=== PATIENT | female | born 1955 | race African-American/Black ===

== ENCOUNTER 2019-10-11 18:18 | Emergency (ER) | payer MEDICAID, OTHER ==
[~2019-10-11] VITALS: Ht 167.6 cm; Wt 63.0 kg
--- NOTE | 2019-10-11 19:47 | RAD ---
Two-view left clavicle HISTORY: Pain and bruising and swelling AP views left clavicle Visualized osseous structures appear normal. The glenohumeral relationship is normal. IMPRESSION: No acute findings. End impression Ribs left with PA chest History: Pain PA view of the chest and dedicated views of the left ribs were obtained. The heart and pulmonary vessels appear normal. The lungs and pleural margins are clear. The visualized osseous structures appear intact. Impression: No acute findings. No evidence of a bony displaced rib fracture. End impression Two-view left humerus: AP lateral views The visualized osseous structures appear normal. IMPRESSION: No acute findings. End impression Three views left shoulder History: pain Internally and externally rotated AP of shoulder obtained, as well as "Y" view. The glenohumeral relationship is normal. The visualized osseous structures appear normal. Impression: No acute findings. end impression Electronically signed by: Abel Montoya III, MD (10/11/2019 7:44 PM) [id number]
[2019-10-11 20:01] VITALS: BP 134/78
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
== END 2019-10-11 21:35 | disposition home or self-care (01) ==
LOC: ER 18:18
DX: S40.022A Contusion of left upper arm, initial encounter (principal); S20.02XA Contusion of left breast, initial encounter; S40.012A Contusion of left shoulder, initial encounter; J44.9 Chronic obstructive pulmonary disease, unspecified; Z86.73 Personal history of transient ischemic attack (TIA), and cerebral infarction without residual deficits; Z87.891 Personal history of nicotine dependence; Z88.0 Allergy status to penicillin; X58.XXXA Exposure to other specified factors, initial encounter; Y93.89 Activity, other specified; Y92.89 Other specified places as the place of occurrence of the external cause; Y99.8 Other external cause status
CPT/HCPCS: 71101; 73000; 73030; 73060; 99284